=== PATIENT | female | born 1960 | race Caucasian/White ===

== ENCOUNTER 2022-08-30 10:13 | Outpatient (CLI) | payer OTHER, SELFPAY ==
--- NOTE | 2022-08-30 10:30 | MM_ITS ---
WS: [id number] BILATERAL SCREENING DIGITAL TOMOSYNTHESIS MAMMOGRAM WITH CAD HISTORY: breast cancer screening COMPARISON: 12/15/2020, 10/25/2016 Bilateral CC and MLO views with tomosynthesis and synthetic mammography submitted. Computer aided det ection analyzed. Breast composition: There are scattered areas of fibroglandular density. No suspicious masses, microc alcifications or architectural distortion. Benign calcifications. MM/[place] [id number] IMPRESSION: BI-RADS: 2-Benign FOLLOW UP: 1 Year Follow-up
== END 2022-08-30 10:14 | disposition home or self-care (01) ==
PROVIDERS: PCP Family Medicine; Visit Provider Family Medicine
DX: Z12.31 Encounter for screening mammogram for malignant neoplasm of breast (principal)
CPT/HCPCS: 77063; 77067

== ENCOUNTER 2023-09-13 11:05 | Outpatient (CLI) | payer OTHER, SELFPAY ==
--- NOTE | 2023-09-13 11:11 | MM_ITS ---
WS: [id number] BILATERAL SCREENING DIGITAL TOMOSYNTHESIS MAMMOGRAM WITH CAD HISTORY: SCREENING COMPARISON: 08/30/2022, 12/15/2020 Bilateral CC and MLO views with tomosynthesis and synthetic mammography submitted. Computer aided det ection analyzed. Breast composition: There are scattered areas of fibroglandular density. No suspicious masses, microc alcifications or architectural distortion. Bilateral benign breast calcifications. IMPRESSION: MM/[place] [id number] BI-RADS: 2-Benign FOLLOW UP: 1 Year Follow-up
== END 2023-09-13 11:06 | disposition home or self-care (01) ==
LOC: RAD 11:05
PROVIDERS: PCP Family Medicine; Visit Provider Family Medicine
DX: Z12.31 Encounter for screening mammogram for malignant neoplasm of breast (principal); R92.323 Mammographic fibroglandular density, bilateral breasts; R92.1 Mammographic calcification found on diagnostic imaging of breast
CPT/HCPCS: 77063; 77067

== ENCOUNTER 2023-09-22 12:35 | Emergency (ER) | payer OTHER, SELFPAY ==
[2023-09-22 12:44] VITALS: BP 155/94; PULSE 58; RESP 17; TEMP 37.1; O2SAT 97; BMI 28.8
--- NOTE | 2023-09-22 12:47 | XR_ITS ---
WS: [id number] Portable AP upright chest, 09/22/2023 Clinical Data: cp Comparison: None. Findings: No nodules, masses or effusions are seen. The heart is enlarged. The pulmonary vascularity is not increased. No pneumonia or pneumothorax is seen. There is a hiatal hernia behind the heart. Impression: Cardiomegaly and hiatal hernia.
--- NOTE | 2023-09-22 14:47 | ECG_ITS ---
[facility] Test Date: 2023-09-22 Pat Name: Mindy Mcneal Department: Room: Gender: Female Medical Office Coordinator: : 1960 Requested By: Mark Valdes Order Number: [id number] Margo MD: Vu Carson M.D. 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 [id number]
--- NOTE | 2023-09-22 14:55 | ED_ITS ---
HPI - Chest Pain 2 General: Chief Complaint: Chest Pain Stated Complaint: chest pains Time Seen by Provider: 09/22/23 14:48 Source: patient Mode of arrival: ambulatory Limitations: no limitations History of Present Illness: 63-year-old female states she started kumar ving chest pain at 1230 today. States is a pressure pain in the center of her chest, epigastric region as well radiated to her left shoulder. She had some shortness of breath with the pain states pain has improved but still mild. She denies any fever denies any cough denies any vomiting. Associated symptoms: Reports dyspnea; Deny abdominal pain, fever(s), nausea or vomiting Review of Systems 2 Const: Denies: fever(s), chills, body aches or change in appetite ENMT: Denies: throat pain or dental pain Card: Reports: chest pain Resp: Reports: dyspnea GI: Denies: abdominal pain, nausea, vomiting or diarrhea Musc: Denies: neck pain or back pain Skin/Breast: Denies: rash Neuro: Denies: headache(s) PFSH ED 2 PFSH: Medical History Depression, major, recurrent Anxiety White coat syndrome without hypertension GERD (gastroesophageal reflux disease) Surgical History History of hysterectomy fibroids History of elbow surgery right Family History (Updated 08/17/22 @ 09:29 by Kelsie Winston MD) Mother Cancer breast Lung disease copd Father Lung disease copd Sister Stroke Rheumatoid arthritis Social History Smoking and tobacco/nicotine status: never used tobacco/nicotine Alcohol intake: never Substance/Drug Use: never Lives independently: Yes Household members: spouse Marital status: Number of children: 1 Highest education level completed: Never Attended/Kindergarten Only Current occupational status: employed 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 Physical Exam 2 Const: COMMON NORMALS: no acute distress, patient oriented x3 and healthy appearing HENMT: COMMON NORMALS: normocephalic and atraumatic HEAD & SCALP: n ormocephalic and atraumatic Neck/C-Spine: COMMON NORMALS: full ROM and supple Chest: COMMONS NORMALS: normal inspection of the chest Resp: COMMON NORMALS: normal respiratory effort, No retractions, No use of accessory muscles and clear to auscultation bilaterally AUSCULTATION: clear to auscultation bilaterally Cardio: COMMON NORMALS: regular rate, regular rhythm and No murmurs present (Cardio) RATE: regular rate RHYTHM: regular rhythm GI: COMMON NORMALS: Normal to inspection, nondistended, normoactive bowel sounds present, Soft to palpation, non-tender and no masses PALPATION: Yes Soft to palpation Extremity: COMMON NORMALS: normal to inspection and full ROM Neuro: COMMON NORMALS: patient oriented x3, moves all extremities and no focal motor deficits Psych: COMMON NORMALS: mental status grossly normal, Normal thought process present and cooperative THOUGHT PROCESS: Normal thought process present Skin: COMMON NORMALS: no rashes or lesions noted and no wounds GENERAL SKIN EXAM: no rashes or lesions noted Course 2 Vital Signs: Vital signs: Vital Signs Temperature 98.7 F 09/22/23 12:44 Pulse Rate 62 09/22/23 17:02 Respiratory Rate 18 09/22/23 17:02 Blood Pressure 127/74 09/22/23 17:02 Pulse Oximetry 94 09/22/23 17:02 Oxygen Delivery Me thod Room Air 09/22/23 17:02 MDM - Chest Pain Medical Decision Making Patient presents here with chest pains atypical in nature is really more gastric her blood work here is all normal initial repeat troponins normal no signs of ACS ultrasound her gallbladder was normal lipase is normal she is to follow-up with PCP in 4 to 7 days return if worsening she understands agrees to plan. Medical Records I reviewed the patient's medical records. Lab Data I reviewed the patient's lab results. 09/22/23 15:03 09/22/23 15:03 Radiology Impressions Gallbladder Ultrasound 09/22/23 15:55 IMPRESSION: 5 mm gallbladder polyp. Laboratory Results WBC 7.03 10^3/uL (3.29-11.43) 09/22/23 15:03 RBC 4.62 10^6/uL (3.85-5.65) 09/22/23 15:03 Hgb 13.00 g/dL (11.27-16.99) 09/22/23 15:03 Hct 40.9 % (36-47) 09/22/23 15:03 MCV 88.5 fl (85-98) 09/22/23 15:03 MCH 28.1 pg (27-33) 09/22/23 15:03 MCHC 31.8 g/dL (30-55) 09/22/23 15:03 RDW 12.2 % (12.1-15.1) 09/22/23 15:03 Plt Count 245 10^3/cmm (157-399) 09/22/23 15:03 MPV 10.6 fL (7.4-10.4) H 09/22/23 15:03 Neut % (Auto) 67.0 % 09/22/23 15:03 Lymph % (Auto) 22.6 % 09/22/23 15:03 Ellis % (Auto) 7.4 % 09/22/23 15:03 Eos % (Auto) 1.8 % 09/22/23 15:03 Baso % (Auto) 0.9 % 09/22/23 15:03 Neut # (Auto) 4.71 10^3/uL (1.8-7.7) 09/22/23 15:03 Lymph # (Auto) 1.6 10^3/uL (0.8-4.8) 09/22/23 15:03 Ellis # (Auto) 0.5 10^3/uL (0.2-0.9) 09/22/23 15:03 Eos # (Auto) 0.1 10^3/uL (0.0-0.8) 09/22/23 15:03 Baso # (Auto) 0.1 10^3/uL (0.0-0.1) 09/22/23 15:03 Nucleated RBC % (auto) 0 % 09/22/23 15:03 Nucleated RBCs # 0.0 /100WBC 09/22/23 15:03 PT 13.20 SECONDS (12.1-14.9) 09/22/23 15:03 INR 0.97 (0.8-1.2) 09/22/23 15:03 Sodium 142 mmol/L (136-145) 09/22/23 15:03 Potassium 4.6 mmol/L (3.5-5.1) 09/22/23 15:03 Chloride 103 mmol/L (98-107) 09/22/23 15:03 Carbon Dioxide 30 mmol/L (22-29) H 09/22/23 15:03 Anion Gap 13.6 (5-19) 09/22/23 15:03 BUN 9 mg/dL (8-23) 09/22/23 15:03 Creatinine 0.6 mg/dL (0.5-0.9) 09/22/23 15:03 GFR Calculation 101.3 mL/min (90-130) 09/22/23 15:03 Glucose 91 mg/dL (65-115) 09/22/23 15:03 Calculated Osmolality 292 mOsm/kg (285-295) 09/22/23 15:03 Calcium 9.2 mg/dL (8.5-10.5) 09/22/23 15:03 Total Bilirubin 0.4 mg/dL (0.15-1.2) 09/22/23 15:03 AST 17 U/L (0-32) 09/22/23 15:03 ALT 11 U/L (0-33) 09/22/23 15:03 Alkaline Phosphatase 59 U/L (35-105) 09/22/23 15:03 Troponin T Baseline < 6 ng/L (0-10) 09/22/23 15:03 Troponin T Hi Sens 6Hr 6.00 ng/L (0-10) 09/22/23 17:19 Troponin T Hi Sens 6Hr Delta 0.03110 ng/L (0-12) 09/22/23 17:19 Total Protein 7.0 g/dL (6.6-8.7) 09/22/23 15:03 Albumin 4.2 g/dL (3.5-5.2) 09/22/23 15:03 Globulin 2.8 g/dL (1.3-4.6) 09/22/23 15:03 Lipase 47 U/L (13-60) 09/22/23 15:03 All radiology interpretation(s) finalized by discharge EKG Data EKG 1: I personally reviewed and interpreted this EKG as follows: EKG interpretation date: 09/22/23 EKG interpretation time: 12:38 Interpretation: SINUS SAUMYA NO ST ELEVATION QRS 98 QTC 441 EKG 2: I personally reviewed and interpreted this EKG as follows: EKG interpretation date: 09/22/23 EKG interpretation time: 15:20 Interpretation: sinus saumya hr [address] elevation qrs 88 qtc 443 Discharge Plan Discharge Patient Disposition: Home Clinical Impression: Chest pain Qualifiers: Chest pain type: unspecified Qualified Code(s): R07.9 - Chest pain, unspecified Condition: Stable Prescriptions: No Action paroxetine HCl 20 mg tablet 20 mg PO DAILY Qty: 90 3RF fluticasone propionate [Flonase Allergy Relief] 50 mcg/actuation spray,suspension 1 spray intranasal BID Qty: 16 0RF Rx Instructions: administer into each nostril omeprazole 40 mg capsule,delayed release(DR/EC) 40 mg PO DAILY Discharge Orders: Discharge ED (Routine); Ordered 09/22/23 Ordered By: Mark Valdes Referrals: Kelsie Winston MD [Primary Care Provider] - 1-3 days Discharge Diet: Advance as tolerated Discharge Activity: Resume usual activity Patient Instructions: Chest Pain (ED) Coding Level of Care Code ED Information Coordinator for Sonia Delgado
[2023-09-22 15:05] VITALS: BP 143/81; PULSE 56; RESP 18; O2SAT 96
[2023-09-22] MEDS: lidocaine 2% viscous 15 ML, aluminum-mag hydrox-simethicon 30 ML, sucralfate oral liq 1 GM PO (15:09)
[2023-09-22] MEDS: aspirin 81 mg Chew Tablet 324 MG PO (15:10)
[2023-09-22 15:39] LABS: Basophils # 0.1 10^3/uL (0.0-0.1); Basophils % 0.9 %; Eosinophils # 0.1 10^3/uL (0.0-0.8); Eosinophils % 1.8 %; Hematocrit 40.9 % (36-47); Lymphocytes # 1.6 10^3/uL (0.8-4.8); Lymphocytes % 22.6 %; Mean Corpuscular HGB Conc 31.8 g/dL (30-55); Mean Corpuscular Hemoglobin 28.1 pg (27-33); Mean Corpuscular Volume 88.5 fl (85-98); Mean Platelet Volume 10.6 fL (7.4-10.4); Monocytes # 0.5 10^3/uL (0.2-0.9); Monocytes % 7.4 %; Neutrophils # 4.71 10^3/uL (1.8-7.7); Nucleated Red Blood Cells % 0 %; Platelet Count 245 10^3/cmm (157-399); Red Blood Count 4.62 10^6/uL (3.85-5.65); Red Cell Distribution Width 12.2 % (12.1-15.1); White Blood Count 7.03 10^3/uL (3.29-11.43)
[2023-09-22 15:50] LABS: INR 0.97 (0.8-1.2)
--- NOTE | 2023-09-22 15:55 | USR_ITS ---
PROCEDURE INFORMATION: Exam: US Abdomen, Limited; Right Upper Quadrant Exam date and time: 09/22/2023 4:15 PM Age: 63 years old Clinical indication: Abdominal pain; Epigastric; Additional info: Ruq pain TECHNIQUE: Imaging protocol: Real time ultrasound of the abdomen with image documentation. Limited exam focused on the right upper quadrant. COMPARISON: No relevant prior studies available. FINDINGS: Liver: Unremarkable. Gallbladder: 5 mm polyp. No gallstones. No gallbladder wall thickening or pericholecystic fluid. Negative sonographic Fernandes's sign, as per the performing soils analyst. Biliary ducts: Normal. No stones. No dilation. Pancreas: Unremarkable as visualized. Right kidney: No mass. No definite stones. No hydronephrosis. US/US gall bladder [id number] IMPRESSION: 5 mm gallbladder polyp.
[2023-09-22 16:03] LABS: Troponin(5th) Baseline < 6 ng/L (0-10)
[2023-09-22 16:05] VITALS: RESP 16; O2SAT 95
[2023-09-22] MEDS: ondansetron 2 mg/ML SDV 2 mL 4 MG IVP (16:05)
[2023-09-22] MEDS: morphine 4 mg/mL SDV 1 mL IVP (16:05)
[2023-09-22 16:06] LABS: Alanine Aminotransferase 11 U/L (0-33); Albumin Level 4.2 g/dL (3.5-5.2); Alkaline Phosphatase 59 U/L (35-105); Anion Gap 13.6 (5-19); Aspartate Amino Transferase 17 U/L (0-32); Blood Urea Nitrogen 9 mg/dL (8-23); Calcium 9.2 mg/dL (8.5-10.5); Carbon Dioxide 30 mmol/L (22-29); Chloride 103 mmol/L (98-107); Creatinine Clr Calc Pharmacy 90.6867; Globulin 2.8 g/dL (1.3-4.6); Glomerular Filtration Rate 101.3 mL/min (90-130); Glucose 91 mg/dL (65-115); Lipase 47 U/L (13-60); Osmolality Calculated 292 mOsm/kg (285-295); Potassium 4.6 mmol/L (3.5-5.1); Sodium 142 mmol/L (136-145); Total Bilirubin 0.4 mg/dL (0.15-1.2)
[2023-09-22 16:07] VITALS: BP 164/109; PULSE 68; RESP 18; O2SAT 96
[2023-09-22 17:02] VITALS: BP 127/74; PULSE 62; RESP 18; O2SAT 94
[2023-09-22] MEDS: HYDROcodone-acetaminophen 5-325 mg Tablet 1 TAB PO (18:16)
[2023-09-22 18:17] VITALS: BP 123/79; PULSE 63; RESP 18; O2SAT 96
[2023-09-22 18:21] LABS: Troponin 5 2HR < 6.0 ng/L (0-10); Troponin 5 2HR Delta 0 ABS# (0-10)
== END 2023-09-22 18:20 | disposition home or self-care (01) ==
PROVIDERS: Emergency Provider Emergency Medicine; PCP Family Medicine
DX: R07.9 Chest pain, unspecified (principal)
CPT/HCPCS: 71045; 76705; 80053; 83690; 84484; 85025; 85610; 93005; 96374; 96375; 99285; J2270; J2405

== ENCOUNTER 2023-11-22 15:00 | Outpatient (CLI) | payer OTHER, SELFPAY | END 2023-11-22 15:01 | disposition home or self-care (01) | LOC: SLEEP 11-23 14:12 | PROVIDERS: PCP Family Medicine; Visit Provider Family Medicine | DX: G47.33 Obstructive sleep apnea (adult) (pediatric) (principal) | CPT/HCPCS: G0399 ==

== ENCOUNTER 2024-03-20 07:51 | Outpatient (CLI) | payer OTHER, SELFPAY ==
--- NOTE | 2024-03-20 08:00 | US_ITS ---
WS: [id number] ULTRASOUND ABDOMEN LIMITED CLINICAL INFORMATION: f/u gallbladder polyp COMPARISON: 09/22/2023 FINDINGS: Liver Size: Mild hepatomegaly Craniocaudal length: 16.1 cm. Echogenicity: Normal. Surface nodularity: None. Mass (size and location): None. Bile ducts Intrahepatic ducts: Normal. Common bile duct diameter: 0.3 cm. Gallbladder Stable 5 mm gallbladder polyp. Gallstones: None. Gallbladder sludge: None. Gallbladder wall thickening: None. Pericholecystic fluid: None. Sonographic Fernandes sign: Absent. Pancreas Normal as visualized. Right kidney: Normal. Hydronephrosis: None. Size: 9.6 cm x 5.4 cm x 5.2 cm. Abdominal aorta and IVC Visualized portions are normal. Ascites: None. US/US gall bladder [id number] IMPRESSION: 1. Stable 5 mm gallbladder polyp. 2. No gallbladder wall thickening or pericholecystic fluid. 3. Mild hepatomegaly. 4. No hydronephrosis in the RIGHT kidney.
== END 2024-03-20 07:52 | disposition home or self-care (01) ==
LOC: RAD 07:55
PROVIDERS: PCP Family Medicine; Visit Provider Family Medicine
DX: K82.4 Cholesterolosis of gallbladder (principal); R16.0 Hepatomegaly, not elsewhere classified
CPT/HCPCS: 76705

== ENCOUNTER 2024-05-21 07:24 | Day surgery (SDC) | payer OTHER, SELFPAY ==
[2024-05-21 07:42] VITALS: BMI 31.1
[2024-05-21] MEDS: sodium chloride 0.9% 1,000 ML 30 ML IV (07:52)
--- NOTE | 2024-05-21 08:03 | ANES.PREANE2 ---
Pre-Anesthetic Assessment Height/Weight: Height 1.57 m Weight 77.111 kg Preop Diagnosis: GERD/screening Operation Date: 05/21/24 08:35 Proposed Procedures p EGD - 40263, 93399, G0121, K21.9, Z12.11(Not Applicable) - Jj Dunbar MD s Colonoscopy(Not Applicable) - Jj Dunbar MD Familial anesthetic complications: none Was Beta Elva taken within 24 hours: N/A Was Clonidine taken within 24 hours: N/A Last intake: Intake Last Liquid Date 05/20/24 Last Liquid Time 20:30 Last Solid Date 05/19/24 Last Solid Time 18:00 Social No alcohol and No tobacco Exam alert, oriented x 3, clear to auscultation bilaterally and regular rate & rhythm Airway Submandibular: within normal limits Cervical ROM: within normal limits Mallampati: Class II Dentition: full Pulmonary Asthma and Sleep Apnea (CPAP) CV/HEM Arrythmia None reported Hepatic None reported GI Gastroesophageal Reflux Disease Metabolic None reported Musc/skel Osteoarthritis/DJD Neuropsych None reported Anesthetic Plan ASA status: 2 Anesthesia: MAC Risk of > 500 ml blood loss (7ml/kg in children): No Medications/Allergies Home Medications Medication Instructions Recorded Confirmed Last Taken Type CPAP (Auto-Titrating CPAP) #1 ea 12/07/23 04/24/24 Unknown Rx pantoprazole 40 mg tablet,delayed 40 mg PO BID #60 tabs 03/18/24 05/21/24 05/20/24 Rx release sucralfate 1 gram tablet (Carafate) 1 g PO BID #60 tabs 03/18/24 05/21/24 05/20/24 Rx albuterol sulfate 90 mcg/actuation 2 puff inhalation Q6H PRN 04/10/24 05/21/24 05/20/24 Rx aerosol inhaler shortness of breath or wheezing #8.5 grams fluticasone propionate 50 2 spray intranasal BID #16 grams 05/13/24 05/21/24 Unknown Rx mcg/actuation nasal spray,suspension (Flonase Allergy Relief) Allergies Allergy/AdvReac Type Severity Reaction Status Date / Time ibuprofen Allergy rash Verified 05/21/24 07:41 Current Medications Generic Name Dose Route Start Last Admin Trade Name Freq PRN Reason Stop Dose Admin Sodium Chloride 1,000 mls @ 30 mls/hr 05/21/24 08:00 05/21/24 07:52 Sodium Chloride 0.9% IV 05/22/24 07:59 30 mls/hr .Q24H OTTO Administration PFSH Anesthesia Medical History CRYSTAL (obstructive sleep apnea) Gallbladder polyp Hiatal hernia Depression, major, recurrent Anxiety White coat syndrome without hypertension GERD (gastroesophageal reflux disease) Surgical History History of hysterectomy fibroids History of elbow surgery right Family History Mother Cancer breast Lung disease copd Father Lung disease copd Sister Stroke Rheumatoid arthritis Social History Smoking and tobacco/nicotine status: never used tobacco/nicotine Alcohol intake: never Substance/Drug Use: never Lives independently: Yes Household members: spouse Marital status: Number of children: 1 Highest education level completed: Never Attended/Kindergarten Only Current occupational status: employed 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
--- NOTE | 2024-05-21 08:31 | P.HPUD_ITS ---
Surgery/Procedure H&P Update DATE OF PROCEDURE: May 21, 2024 DATE H&P PERFORMED: 04/24/24 H&P UPDATE INFORMATION: I have reviewed H&P completed within last 30 days, I have examined patient prior to procedure, No changes to prior documentation and H&P is in [facility] on date indicated PREOP DIAGNOSIS: GERD/screening PLANNED PROCEDURE: Operation Date: 05/21/24 08:35 Proposed Procedures p EGD - 59808, 61452, G0121, K21.9, Z12.11(Not Applicable) - Jj Dunbar MD s Colonoscopy(Not Applicable) - Jj Dunbar MD
[2024-05-21 09:09] VITALS: BP 98/55; PULSE 57; RESP 12; TEMP 36.4; O2SAT 98
[2024-05-21 09:22] VITALS: BP 116/83; PULSE 60; RESP 16; O2SAT 97
[2024-05-21 09:50] VITALS: BP 132/72; PULSE 60; RESP 16; O2SAT 100
--- NOTE | 2024-05-21 09:59 | ANE.PACU2 ---
Inpatient post-anesthesia follow up: Airway intact: Yes Vital signs: Temperature 97.6 F Pulse Rate 60 Respiratory Rate 16 Blood Pressure 132/72 Pulse Oximetry 100 Oxygen Delivery Me thod Room Air Oxygen Flow Rate Fraction of Inspir ed Oxygen Hydration adequate: Yes Nausea and vomiting: No Pain level: 1 Mental status: Baseline
== END 2024-05-21 09:59 | disposition home or self-care (01) ==
PROVIDERS: PCP Family Medicine; Visit Provider Surgery
PROC: 0DJ08ZZ Inspection of Upper Intestinal Tract, Via Natural or Artificial Opening Endoscopic (ICD-10-PCS; CPT 43235; principal; 2024-05-21 08:35)
PROC: 0DJD8ZZ Inspection of Lower Intestinal Tract, Via Natural or Artificial Opening Endoscopic (ICD-10-PCS; CPT 45378; 2024-05-21 08:35)
DX: Z12.11 Encounter for screening for malignant neoplasm of colon (principal); K21.9 Gastro-esophageal reflux disease without esophagitis; K29.50 Unspecified chronic gastritis without bleeding; K44.9 Diaphragmatic hernia without obstruction or gangrene; K29.70 Gastritis, unspecified, without bleeding; J45.909 Unspecified asthma, uncomplicated; M19.90 Unspecified osteoarthritis, unspecified site; G47.33 Obstructive sleep apnea (adult) (pediatric); F41.9 Anxiety disorder, unspecified
CPT/HCPCS: 43239; 45378; 88305; 88342; J2704; J7030

== ENCOUNTER 2024-06-25 08:51 | Outpatient (CLI) | payer OTHER, SELFPAY ==
--- NOTE | 2024-06-25 09:15 | FL_ITS ---
WS: [id number] Exam: FL barium swallow [id number] Date/Time of Exam: 06/25/2024 9:01 AM Reason For Exam: Fluoroscopy time: 2min [id number] minutes # of spot films: 5 Oropharyngeal phase of swallowing was normal. No aspiration or penetration was observed. There is mod erate tertiary spasm of the distal one third of the esophagus. Large paraesophageal hiatal hernia not ed. No sign of esophageal stricture or mass. No obvious reflux noted during fluoroscopy. FL/FL barium swallow [id number] IMPRESSION: 1. Moderate tertiary spasm of the lower one third of the esophagus. No esophage al stricture or mass. 2. Large paraesophageal hiatal hernia.
== END 2024-06-25 08:52 | disposition home or self-care (01) ==
PROVIDERS: PCP Family Medicine; Visit Provider Surgery
DX: K44.9 Diaphragmatic hernia without obstruction or gangrene (principal); R93.3 Abnormal findings on diagnostic imaging of other parts of digestive tract
CPT/HCPCS: 74220

== ENCOUNTER 2024-12-27 09:02 | Outpatient (CLI) | payer OTHER, SELFPAY ==
--- NOTE | 2024-12-27 09:07 | MM_ITS ---
WS: [id number] BILATERAL SCREENING DIGITAL TOMOSYNTHESIS MAMMOGRAM WITH CAD HISTORY: SCREENING COMPARISON: 09/13/2023, 08/30/2022 Bilateral CC and MLO views with tomosynthesis and synthetic mammography submitted. Computer aided detection analyzed. Breast composition: There are scattered areas of fibroglandular density. No suspicious masses, microcalcifications or architectural distortion. Benign calcifications in each breast. MM/MM scr BI tomosynthesis [id number] IMPRESSION: BI-RADS: 2 - Benign. FOLLOW UP: 1 Year Follow-up
== END 2024-12-27 09:03 | disposition home or self-care (01) ==
LOC: RAD 09:03
PROVIDERS: PCP Family Medicine; Visit Provider Family Medicine
DX: Z12.31 Encounter for screening mammogram for malignant neoplasm of breast (principal); R92.323 Mammographic fibroglandular density, bilateral breasts; R92.1 Mammographic calcification found on diagnostic imaging of breast
CPT/HCPCS: 77063; 77067

== ENCOUNTER → 2025-06-20 12:42 | Outpatient (BNVA) | payer OTHER, SELFPAY | PROVIDERS: PCP Family Medicine; Visit Provider Family Medicine | DX: R19.7 Diarrhea, unspecified (principal) | CPT/HCPCS: 80053; 85025 ==

== ENCOUNTER 2025-07-01 09:02 | Outpatient (CLI) | payer OTHER, SELFPAY ==
--- NOTE | 2025-07-01 09:15 | USR_ITS ---
PROCEDURE INFORMATION: Exam: US Abdomen; Limited Exam date and time: 07/01/2025 9:20 AM Age: 65 years old Clinical indication: Condition or disease; Gallbladder condition; Other: Gallbadder polyp; Additional info: F/u gallbadder polyp TECHNIQUE: Imaging protocol: Real time ultrasound of the abdomen with image documentation. Limited exam focused on the region of clinical interest. COMPARISON: US gall bladder [id number] 09/22/2023 4:15 PM FINDINGS: Liver: Hepatic morphology is normal. Hepatic echogenicity and echotexture are normal. No surface nodularity. No solid hepatic lesions. Gallbladder: A 4 mm gallbladder polyp is stable. The gallbladder is otherwise normal without wall thickening, pericholecystic fluid, or stones. Biliary ducts: The common bile duct measures up to 4 mm, within normal limits. No intra or extrahepatic bile duct dilatation is noted. Pancreas: The imaged pancreas is within normal limits. No ductal dilatation is noted. Right kidney: The right kidney measures 8.3 x 4.5 x 5.1 cm. Normal renal echogenicity and echotexture. Normal cortical thickness. No hydronephrosis, nephrolithiasis, or solid renal mass is noted. Appropriate vascular color Doppler flow is noted within the renal hilum. Aorta: The imaged aorta is patent and nonaneurysmal. Inferior vena cava: The imaged IVC is patent. Portal venous: The portal veins are patent and nondilated. US/US gall bladder [id number] IMPRESSION: 1. Stable 4 mm gallbladder polyp. If the patient has a risk factor for gallbladder malignancy (i.e., patient age > 50 years, primary sclerosing cholangitis, [place] ethnicity, and/or sessile gallbladder polyp), then follow-up ultrasound at 6 months, 1 year, 2 years, 3 years, 4 years, and 5 years is recommended. If the patient does not have a risk factor for gallbladder malignancy, then follow-up ultrasound at 1 year, 3 years, and 5 years is recommended. (Reference: John) 2. Otherwise, no acute sonographic abnormality. REFERENCES: John Sargent, et al. Management and follow-up of gallbladder polyps. Eur Radiol 27, 2604-6793 (2017).
== END 2025-07-01 09:03 | disposition home or self-care (01) ==
LOC: RAD 09:03
PROVIDERS: PCP Family Medicine; Visit Provider Family Medicine
DX: K82.4 Cholesterolosis of gallbladder (principal)
CPT/HCPCS: 76705